=== PATIENT | female | born 1960 | race Caucasian/White ===

== ENCOUNTER 2017-04-06 06:43 | Inpatient (IN) ==
[2017-04-05 14:25] LABS: MANUAL DIFF NEEDED? NO
[2017-04-05 14:45] LABS: BASO% 0.6 % (0.0-0.8); EOS# 0.23 X1000 (0.0-0.7); EOS% 3.5 % (0.0-10.0); HEMATOCRIT 36.1 % (37.0-47.0); HEMOGLOBIN 12.1 g/dL (12.0-16.0); IMM GRAN# 0.02 X1000 (0.0-0.04); IMM GRAN% 0.3 % (0.0-0.5); LYMPH# 2.48 X1000 (1.2-3.4); LYMPH% 37.9 % (20.5-51.1); MCH 30.9 PG (27-31); MCHC 33.5 g/dL (33-37); MCV 92.3 FL (81-99); MONO% 7.6 % (1.7-9.3); MPV 9.4 FL (7.4-10.4); NEUT% 50.1 % (42.2-75.2); PLT 312 X1000 (130-400); RBC 3.91 XMIL (4.2-5.4)
[2017-04-05 15:02] LABS: CALCIUM 9.5 mg/dL (8.8-10.2); POTASSIUM 4.8 mmol/L (3.5-5.1)
--- NOTE | 2017-04-06 06:17 | EKG Report ---
Test Performed on : 04/05/2017 2:10:03 PM Test Reason : PAT Blood Pressure : / mmHG Vent. Rate : 086 BPM Atrial Rate : 086 BPM P-R Int : 186 ms QRS Dur : 084 ms QT Int : 374 ms P-R-T Axes : 046 007 057 degrees QTc Int : 447 ms Normal sinus rhythm. Cannot rule out Anterior infarct , age undetermined Abnormal ECG When compared with ECG of 14-SEP-2016 05:49, T wave inversion no longer evident in Inferior leads Confirmed by Julio HANEY, Javier Kessler ([id number]) on 04/06/2017 6:48:24 AM
[2017-04-06] MEDS ORDERED: LR 1,000 ML ONE ×2 (07:08→15:34)
[2017-04-06] MEDS ORDERED: KEFZOL 1 GM/D5W 1 GM/50 ML IVPB ONE (07:09)
[2017-04-06] MEDS ORDERED: PEPCID ONE (07:09)
[2017-04-06] MEDS ORDERED: REGLAN ONE (07:09)
--- NOTE | 2017-04-06 08:54 | Diag Imaging Result Doc PS360 ---
LYMPHOSCINTIGRAPHY W/IMG - 04/06/2017 INDICATION: Left mastectomy COMPARISON: None FINDINGS: 520 uCi of radiotracer was injected into the left breast. After the appropriate delay, there was successful visualization of at least one sentinel lymph node in the left axilla. IMPRESSION: Successful lymphoscintigraphy of the left breast. Electronically signed by Godfrey Zaacrias 04/06/2017 8:52 AM
[2017-04-06] MEDS ORDERED: ZOFRAN ONE ×2 (09:33→15:34)
[2017-04-06] MEDS ORDERED: ZOFRAN IV ONE (09:37)
[2017-04-06] MEDS ORDERED: METHYLENE BLUE 1% ONE (10:06)
[2017-04-06] MEDS ORDERED: MORPHINE ONE ×3 (12:46→15:05)
[2017-04-06] MEDS ORDERED: NS 1,000 ML ONE (12:46)
[2017-04-06] MEDS: NS 1,000 ML IV SCH (13:29)
[2017-04-06] MEDS ORDERED: LASIX PO PRN (13:34)
[2017-04-06] MEDS ORDERED: NITROGLYCERIN SL PRN (13:34)
[2017-04-06] MEDS: DILAUDID IV PRN ×3 (13:40→22:04)
[2017-04-06] MEDS: NORCO-10 PO PRN ×2 (14:15→18:48)
--- NOTE | 2017-04-06 14:32 | OPERATIVE NOTE ---
PROCEDURE DATE: 04/06/2017 PROCEDURE: Left sentinel lymph node biopsy; left modified radical mastectomy. SURGEON: Ole Celestin MD AGRICULTURE LABORER: Deborah PREOPERATIVE DIAGNOSIS: Cancer of the left breast. POSTOPERATIVE DIAGNOSIS: Cancer of the left breast with positive lymph nodes. DESCRIPTION OF PROCEDURE: Satisfactory general anesthesia was achieved and LMA apparently was used. The left breast and axilla was prepped and draped in a sterile fashion. We marked the skin in an elliptical fashion around the breast with extension into the axilla. We incised the extension into the axilla first and interrogated the axilla. We identified a hot node. This was sentinel node #1. We also identified some other palpable nodes that we sent for frozen section. In total we sent for lymph nodes for frozen section. As we waited for the results of those, we went ahead and incised the skin, the area keyon around the breast and raised the superior flap to the clavicle, inferior flap to the rectus muscle and serratus muscle. We then took the breast off the pectoralis major from medial to lateral. We came off the pectoralis major under the pectoralis minor, took off the pectoralis minor into the axilla. Every lymph node we sent was positive. So we then identified the latissimus dorsi muscle and its lateral aspect and followed it superiorly to its tendinous portion. We then identified the axillary vein laterally, we dissected from lateral to medial. There was still some palpable nodes in the axilla we dissected superior those until all palpable nodes were removed with the axillary contents. We identified the long thoracic nerve. We identified the thoracodorsal nerve. We clamped the tissue between those and divided it and then swept the tissue from between the 2 nerves until the nerves were seen to dive into the respective muscles. We then took the breast off the lateral chest wall. We marked the apex of the axilla with a stitch we then had a specimen of left breast with axillary contents. We irrigated hemostasis was satisfactory. We placed a Riley drain under the superior flap bringing it out medially. We brought up another drain into the axilla bringing it out laterally. These were secured to the skin with 0 silk stitches. We then approximated the skin with harshal. Negative pressure was applied evacuating the space. A sterile dressing was applied. She tolerated it well, was sent to the recovery room in satisfactory condition. cc: Ole Celestin MD
[2017-04-06] MEDS ORDERED: VERSED ONE (15:04)
[2017-04-06] MEDS ORDERED: DIPRIVAN 1% ONE (15:04)
[2017-04-06] MEDS ORDERED: FENTANYL ONE (15:04)
[2017-04-06] MEDS ORDERED: ROBINUL ONE (15:34)
[2017-04-06] MEDS ORDERED: XYLOCAINE-MPF 2% ONE (15:34)
[2017-04-06] MEDS: PATIENT'S OWN MED SUBQ SCH (18:44)
[2017-04-06] MEDS: GLUCOPHAGE PO SCH (18:44)
[2017-04-06] MEDS: KEFZOL 1 GM/D5W 1 GM/50 ML IVPB IV SCH (18:48)
[2017-04-06] MEDS: ZOCOR PO SCH (20:28)
[2017-04-06] MEDS: XANAX PO SCH (20:28)
[2017-04-06] MEDS: TOPROL XL PO SCH (20:28)
[2017-04-06] MEDS: FLEXERIL PO SCH (20:28)
[2017-04-06] MEDS: PROAMATINE PO SCH (20:29)
[2017-04-06] MEDS: RANEXA PO SCH (20:29)
[2017-04-06] MEDS: PERIDEX MT SCH (21:59)
[2017-04-07] MEDS: NS 1,000 ML IV SCH ×3 (01:06→22:47)
[2017-04-07] MEDS: DILAUDID IV PRN ×7 (01:07→23:49)
[2017-04-07] MEDS: KEFZOL 1 GM/D5W 1 GM/50 ML IVPB IV SCH (01:07)
[2017-04-07] MEDS: ZOFRAN IV PRN ×5 (01:08→20:36)
[2017-04-07] MEDS: NORCO-10 PO PRN ×3 (02:50→15:33)
[2017-04-07 05:32] LABS: MANUAL DIFF NEEDED? NO
[2017-04-07 05:38] LABS: BASO% 0.3 % (0.0-0.8); EOS# 0.17 X1000 (0.0-0.7); EOS% 1.9 % (0.0-10.0); HEMATOCRIT 31.2 % (37.0-47.0); HEMOGLOBIN 10.3 g/dL (12.0-16.0); IMM GRAN# 0.02 X1000 (0.0-0.04); IMM GRAN% 0.2 % (0.0-0.5); LYMPH# 2.39 X1000 (1.2-3.4); LYMPH% 26.3 % (20.5-51.1); MCH 31.1 PG (27-31); MCV 94.3 FL (81-99); MONO# 0.76 X1000 (0.11-0.59); MONO% 8.4 % (1.7-9.3); MPV 9.6 FL (7.4-10.4); NEUT% 62.9 % (42.2-75.2); PLT 274 X1000 (130-400); RBC 3.31 XMIL (4.2-5.4)
[2017-04-07 05:53] LABS: AGAP 10; BUN 15 mg/dL (8-22); CALCIUM 8.7 mg/dL (8.8-10.2); CHLORIDE 107 mmol/L (98-107); COSMO 283; POTASSIUM 4.2 mmol/L (3.5-5.1); SODIUM 142 mmol/L (136-145); TCO2 25 mmol/L (25-35)
[2017-04-07] MEDS: GLUCOPHAGE PO SCH ×2 (08:32→16:43)
[2017-04-07] MEDS: RANEXA PO SCH ×2 (08:33→20:35)
[2017-04-07] MEDS: PROZAC PO SCH (08:33)
[2017-04-07] MEDS: TOPAMAX PO SCH (08:33)
[2017-04-07] MEDS: PLAVIX PO SCH (08:33)
[2017-04-07] MEDS: PROAMATINE PO SCH ×2 (08:34→20:36)
[2017-04-07] MEDS: XANAX PO SCH ×2 (08:34→20:36)
[2017-04-07] MEDS: MOBIC PO SCH (08:35)
[2017-04-07] MEDS: PERIDEX MT SCH ×2 (08:35→20:36)
[2017-04-07] MEDS: PREVACID SOLUTAB PO SCH (08:35)
[2017-04-07] MEDS: PATIENT'S OWN MED SUBQ SCH ×3 (10:27→16:43)
[2017-04-07] MEDS: ASPIRIN PO SCH (10:28)
--- NOTE | 2017-04-07 15:06 | Diag Imaging Result Doc PS360 ---
EXAM: CHEST-PORTABLE HISTORY: cough COMPARISON: 09/12/2016. FINDINGS: There are several skin harshal overlying the lower left chest and axilla. Sternal wires are present. The lungs are well expanded. Heart is not enlarged. The vessels are not distended. No pleural effusions identified. No pneumothoraces. No infiltrates. IMPRESSION: Recent surgery on the left, but no acute abnormality except for mild atelectasis in the left base. Electronically signed by Jt Mei 04/07/2017 3:03 PM
[2017-04-07] MEDS: TESSALON PO SCH (16:42)
[2017-04-07] MEDS: TOPROL XL PO SCH (20:36)
[2017-04-07] MEDS: FLEXERIL PO SCH (20:36)
[2017-04-07] MEDS: ZOCOR PO SCH (20:36)
--- NOTE | 2017-04-07 21:44 | CONSULTATION ---
DATE OF CONSULTATION: 04/07/2017 REFERRING PHYSICIAN: Ole Celestin MD HISTORY OF PRESENT ILLNESS: She is a 57-year-old white female patient of mine, who was operated for a left radical mastectomy, followed by sentinel lymph node biopsy. The patient has couple of drains, admitted to the hospital for observation. Patient has persistent cough , some swelling of feet. Basically a medical consult was evaluated. PAST MEDICAL HISTORY: CAD, status post bypass surgery and 7 stents. Depression. Type 2 diabetes. Hypertension. Chronic headaches. Hyperlipidemia. Kidney stones. Sleep apnea. Hiatal hernia. 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 Recent left breast cancer. Dysautonomia. PAST SURGICAL HISTORY: Bypass surgery. Gallbladder surgery. Right shoulder surgery. Right ankle surgery. C-spine fusion. Bilateral carpal tunnel. Right shoulder arthroscopy. MEDICATIONS: Prevacid 30 mg daily. Ranexa 500 p.o. b.i.d. Toprol-XL 25 daily. Flexeril 10 daily. Mobic 15 daily. Prozac 40 daily. Simvastatin 40 daily. Nitroglycerin as needed. Topamax 100 daily. Subcutaneous insulin pump. ProAmatine 10 p.o. b.i.d. Metformin 500 p.o. b.i.d. Plavix 75 daily. Xanax 0.5 p.o. b.i.d. Aspirin 80 mg daily. Lasix 40 daily. ALLERGIES: Bactrim. SOCIAL HISTORY: , 3 children. Disabled. Lives in [place]. No smoking. No alcohol. FAMILY HISTORY: Father of heart problems from diabetes. Mom from dementia problems. HEALTH MAINTENANCE: Flu vaccine 2015. Pneumococcal 2011. Colonoscopy 02/2016. Pap smear 2015. Tetanus 2008. Mammography 2016. REVIEW OF SYSTEMS: HEENT: No headache. No vision problem. No earache. No sore throat. Neck: No goiter. No lymphadenopathy. Cardiopulmonary: Postop pain. Cough. Dry. No chest pain. No shortness of breath. GI: No nausea, vomiting, abdominal pain. : No history of hesitancy, frequency. Swelling of feet. Neurologic: No obvious focal symptoms or weakness. PHYSICAL EXAMINATION: Vital Signs: Afebrile. Stable. Blood pressure is 133/ 55. HEENT: Atraumatic, normocephalic. Pupils equal, react to light. TMs are normal. Nose and throat within normal limits. Neck: Supple. No lymphadenopathy. No goiter. Chest: Bilateral air entry. No rales, no wheezing. Heart: Sounds are regular. Abdomen: Belly is soft, nontender. Good bowel sounds. Extremities: 1+ edema. Neurologic: Nonfocal. Left breast: Two RASHAAD drains were placed. INVESTIGATIONS: CBC: White cell count 4.5 hematocrit 31, platelets 274,000. SMA7 is normal. Calcium 8.7. Chest x-ray: Atelectasis. ASSESSMENT AND PLAN: 1. A 57-year-old white female, admitted to the hospital with left radical mastectomy, modified with sentinel lymph node biopsy. Presented with cough and edema. 2. Upper respiratory infection symptoms. We will use the Robitussin DM or Tussionex. 3. Coronary artery disease status post bypass surgery. Continue on Plavix, metoprolol. 4. Hyperlipidemia on Zocor. 5. Chronic headaches on Topamax. 6. Postop pain with Dilaudid and Zofran. 7. History of dysautonomia on ProAmatine. 8. Chronic depression on Prozac. 9. Deep venous thrombosis and gastrointestinal prophylaxis with Lovenox and Protonix respectively. Once again, thanks for the kind referral. cc: MD Ole Gates MD MTDD
[2017-04-07] MEDS: PROTONIX IV SCH (23:49)
[2017-04-07] MEDS: SODIUM CHLORIDE 0.9% INJ SCH (23:49)
[2017-04-08] MEDS: NORCO-10 PO PRN ×2 (01:28→14:09)
[2017-04-08] MEDS: DILAUDID IV PRN ×5 (02:48→23:33)
[2017-04-08 05:20] LABS: MANUAL DIFF NEEDED? NO
[2017-04-08 05:23] LABS: BASO% 0.1 % (0.0-0.8); EOS# 0.19 X1000 (0.0-0.7); EOS% 2.4 % (0.0-10.0); HEMATOCRIT 30.9 % (37.0-47.0); HEMOGLOBIN 10.1 g/dL (12.0-16.0); LYMPH# 2.49 X1000 (1.2-3.4); LYMPH% 31.5 % (20.5-51.1); MCH 31.1 PG (27-31); MCHC 32.7 g/dL (33-37); MCV 95.1 FL (81-99); MONO# 0.72 X1000 (0.11-0.59); MONO% 9.1 % (1.7-9.3); MPV 9.8 FL (7.4-10.4); NEUT% 56.9 % (42.2-75.2); PLT 245 X1000 (130-400); RBC 3.25 XMIL (4.2-5.4)
[2017-04-08 05:38] LABS: AGAP 10; BUN 14 mg/dL (8-22); CALCIUM 8.3 mg/dL (8.8-10.2); CHLORIDE 107 mmol/L (98-107); COSMO 279; POTASSIUM 4.1 mmol/L (3.5-5.1); SODIUM 141 mmol/L (136-145); TCO2 24 mmol/L (25-35)
[2017-04-08] MEDS: ZOFRAN IV PRN ×4 (06:23→23:34)
[2017-04-08] MEDS: PATIENT'S OWN MED SUBQ SCH ×3 (06:56→16:23)
[2017-04-08] MEDS: HUMULIN R SUBQ SCH ×4 (06:56→22:46)
[2017-04-08] MEDS: PLAVIX PO SCH (09:22)
[2017-04-08] MEDS: ASPIRIN PO SCH (09:22)
[2017-04-08] MEDS: PERIDEX MT SCH ×2 (09:22→22:50)
[2017-04-08] MEDS: PROAMATINE PO SCH ×2 (09:22→22:50)
[2017-04-08] MEDS: XANAX PO SCH ×2 (09:23→22:50)
[2017-04-08] MEDS: RANEXA PO SCH ×2 (09:23→22:50)
[2017-04-08] MEDS: TESSALON PO SCH ×3 (09:23→22:50)
[2017-04-08] MEDS: TOPAMAX PO SCH (09:23)
[2017-04-08] MEDS: MOBIC PO SCH (09:23)
[2017-04-08] MEDS: GLUCOPHAGE PO SCH ×2 (09:24→16:22)
[2017-04-08] MEDS: LOVENOX SUBQ SCH (09:24)
[2017-04-08] MEDS: PROZAC PO SCH (09:25)
[2017-04-08] MEDS: PREVACID SOLUTAB PO SCH (09:25)
[2017-04-08] MEDS: NS 1,000 ML IV SCH ×2 (09:31→22:49)
--- NOTE | 2017-04-08 20:05 | PROGRESS NOTE ---
DATE: 04/08/2017 SUBJECTIVE: Postoperative after left modified mastectomy. Patient has some dry cough. No swelling. No chest pain. REVIEW OF SYSTEMS: None reported. OBJECTIVE: Vital Signs: Stable. HEENT: Within normal limits. Neck: Supple. Chest: Clear. Heart: Sounds are regular. Abdomen: Belly is soft, nontender. Good bowel sounds. No masses palpable. Nonfocal. INVESTIGATIONS: White cell count 7.9, hematocrit 30, platelets 245,000. SMA 7 is normal. Glucose is 55. ASSESSMENT AND PLAN: 1. Day 1 postop left radical mastectomy with 1 sentinel lymph node biopsy which is positive. Follow up on pathology report. 2. Dry cough due to bronchitis. Continue symptomatic treatment. 3. Dysautonomia stable. 4. Status post right ankle fracture stable. 5. Coronary artery disease stable. 6. Diabetes stable. Continue present medical therapy. 7. Discussion with Dr. Celestin and patient. Hopefully she will be discharged home in the morning. Based on the pathology report, further recommendations will be followed. cc: MD Ole Gates MD
[2017-04-08] MEDS: SODIUM CHLORIDE 0.9% INJ SCH (22:50)
[2017-04-08] MEDS: FLEXERIL PO SCH (22:50)
[2017-04-08] MEDS: ZOCOR PO SCH (22:50)
[2017-04-08] MEDS: TOPROL XL PO SCH (22:51)
[2017-04-08] MEDS: PROTONIX IV SCH (22:51)
[2017-04-09] MEDS: DILAUDID IV PRN ×3 (04:18→17:55)
[2017-04-09] MEDS: ZOFRAN IV PRN ×3 (04:18→17:55)
[2017-04-09] MEDS: HUMULIN R SUBQ SCH ×4 (06:21→20:44)
[2017-04-09] MEDS: PATIENT'S OWN MED SUBQ SCH ×4 (06:22→17:48)
[2017-04-09] MEDS: PERIDEX MT SCH ×2 (08:11→20:46)
[2017-04-09] MEDS: PROZAC PO SCH (08:11)
[2017-04-09] MEDS: PLAVIX PO SCH (08:11)
[2017-04-09] MEDS: GLUCOPHAGE PO SCH ×2 (08:12→17:48)
[2017-04-09] MEDS: TESSALON PO SCH ×3 (08:12→17:47)
[2017-04-09] MEDS: ASPIRIN PO SCH (08:12)
[2017-04-09] MEDS: PROAMATINE PO SCH ×2 (08:12→20:45)
[2017-04-09] MEDS: MOBIC PO SCH (08:12)
[2017-04-09] MEDS: TOPAMAX PO SCH (08:12)
[2017-04-09] MEDS: XANAX PO SCH (08:13)
[2017-04-09] MEDS: LOVENOX SUBQ SCH (08:13)
[2017-04-09] MEDS: PREVACID SOLUTAB PO SCH (10:20)
[2017-04-09] MEDS: RANEXA PO SCH ×2 (10:20→20:46)
[2017-04-09] MEDS: NORCO-10 PO PRN (13:16)
[2017-04-09] MEDS: NS 1,000 ML IV SCH (13:16)
--- NOTE | 2017-04-09 13:56 | PROGRESS NOTE ---
DATE: 04/09/2017 SUBJECTIVE: Feels okay, minimal pain. RASHAAD drain serosanguineous. OBJECTIVE: Temperature 98, pulse 82, blood pressure 144/61, O2 saturation 98% on room air. Left mastectomy incision is clean, dry, and intact. There is serosanguineous drainage, and her drains expected amounts. No new labs this morning. ASSESSMENT AND PLAN: This is a 57-year-old female status post left mastectomy with sentinel node biopsy by Dr. Celestin. Overall she is doing well from a surgical standpoint. Dr. Hackett is working up a cough that she has had although our respiratory rate and oxygen requirement are normal appearing. She does seem to have a dry cough. He is going to treat her for this. He wants to keep her today as he monitors her, but I think from a surgical standpoint she is ready to go when she is stable medically. We will continue follow along with Dr. Domingo. He will see the patient over the weekend. cc: MD Ole Walker MD
--- NOTE | 2017-04-09 18:20 | PROGRESS NOTE ---
DATE: 04/09/2017 SUBJECTIVE: Postop day 2 after left mastectomy. Patient complains of nausea, unable to eat and decreased cough. No chest pain. Rest of the review of systems are normal. The patient had a BM yesterday. OBJECTIVE: Vital signs: On exam vitals are stable, afebrile. HEENT: Within normal limits. Neck: Supple. No lymphadenopathy. Chest: Clear. Heart: Sounds are regular. RASHAAD drains were present on the left side of the chest. Belly: Soft, obese, nontender. Good bowel sounds. Extremities: No peripheral edema. ASSESSMENT AND PLAN: 1. Postop day 2 left mastectomy, nausea, bloating. Will hold off discharge. 2. Decreased intravenous fluids. 3. Dysautonomia stable. 4. Type 2 diabetes on metformin. Will discuss with the surgeon who is on-call for Dr. Celestin. Hopefully will be discharged in the morning and continue present medical therapy and will follow up. cc: MD Ole Gates MD
[2017-04-09] MEDS: FLEXERIL PO SCH (20:45)
[2017-04-09] MEDS: ZOCOR PO SCH (20:45)
[2017-04-09] MEDS: TOPROL XL PO SCH (20:45)
[2017-04-09] MEDS: PROTONIX IV SCH (20:46)
[2017-04-09] MEDS: SODIUM CHLORIDE 0.9% INJ SCH (20:46)
[2017-04-10] MEDS: DILAUDID IV PRN ×5 (01:10→22:08)
[2017-04-10] MEDS: ZOFRAN IV PRN ×5 (01:10→22:07)
[2017-04-10] MEDS: NS 1,000 ML IV SCH ×4 (01:11→13:35)
[2017-04-10] MEDS: XANAX PO SCH ×3 (03:51→22:00)
[2017-04-10] MEDS: HUMULIN R SUBQ SCH ×4 (07:42→21:57)
[2017-04-10] MEDS: PATIENT'S OWN MED SUBQ SCH ×3 (07:43→17:15)
[2017-04-10] MEDS: PROZAC PO SCH (08:18)
[2017-04-10] MEDS: TOPAMAX PO SCH (08:18)
[2017-04-10] MEDS: ASPIRIN PO SCH (08:18)
[2017-04-10] MEDS: PROAMATINE PO SCH ×2 (08:18→21:59)
[2017-04-10] MEDS: MOBIC PO SCH (08:18)
[2017-04-10] MEDS: TESSALON PO SCH (08:18)
[2017-04-10] MEDS: PLAVIX PO SCH (08:18)
[2017-04-10] MEDS: RANEXA PO SCH ×2 (08:18→21:59)
[2017-04-10] MEDS: PERIDEX MT SCH ×2 (08:19→22:00)
[2017-04-10] MEDS: LOVENOX SUBQ SCH (08:19)
[2017-04-10] MEDS: PREVACID SOLUTAB PO SCH (08:19)
[2017-04-10] MEDS: GLUCOPHAGE PO SCH ×2 (12:53→17:15)
--- NOTE | 2017-04-10 13:05 | Diag Imaging Result Doc PS360 ---
EXAM: CHEST-2 VIEWS HISTORY: crackles lt TECHNIQUE: Two views PA and lateral COMMENT: There has been apparent recent left thoracotomy. There is a tube overlying lateral to the left chest wall. There are sternotomy wires. There is some atelectasis in both lung bases particularly the medial right lower lobe. There appears to be some improvement with regard to the left base compared to 04/07/2017. Otherwise has been no significant change. IMPRESSION: Slightly improved atelectasis. Electronically signed by Car Muller 04/10/2017 1:03 PM
[2017-04-10] MEDS: LEVAQUIN 750 MG/D5W 750 MG/150 ML IVPB IV SCH (13:32)
--- NOTE | 2017-04-10 14:58 | PROGRESS NOTE ---
DATE: 04/10/2017 SUBJECTIVE: Ms. Harriet Hayes is a 57-year-old white female patient Dr. Chalo Celestin. She is status post left mastectomy with sentinel lymph node biopsy and has [address]. She remains hospitalized per Dr. Hackett because of a cough. I removed 1 of her RASHAAD drains today and redressed her wound, which seems to be healing well, without evidence of abnormal swelling or infection. We will allow Dr. Hackett to determine when she can go home. Her left axillary drain remains in place. cc: MD Ole Newsome MD
[2017-04-10] MEDS: ALBUTEROL NEB INH SCH ×3 (15:05→23:09)
--- NOTE | 2017-04-10 15:56 | PROGRESS NOTE ---
DATE: 04/10/2017 SUBJECTIVE: Patient continues to have the barky dry cough, bothersome to the patient, concerning for her and her . History of frequent pneumonias in the past. OBJECTIVE: Afebrile. Pulse 74, respirations 18, blood pressure 144/66, O2 saturation room air 97- 100%. CV: RRR. Lungs: Crackles left lung base with coarse breath sounds. Extremities: No calf tenderness, cords or edema. Abdomen: Nontender. LABORATORY DATA: No labs done today. Blood sugars ranging 65 to 239 over the past couple of days. ASSESSMENT: 1. Cough with left lung crackles, rule out early left pneumonia versus atelectasis. 2. Frequent pneumonias. 3. Postop left mastectomy per Dr. Celestin. 4. Small pericardial effusion. 5. Coronary artery disease. 6. Type 2 diabetes mellitus. 7. Hypertension. 8. Depression. 9. Chronic headaches. 10. Hyperlipidemia. 11. Dysautonomia. PLAN: At this time, patient says she is afraid to return home, fearful she might have to return with difficulty. She is adamant she wants to stay in the hospital for additional treatment so we will start IV Levaquin and check chest x-ray. Start albuterol nebulizer treatments. Change from Tessalon to Robitussin DM for cough. Try to improve the situation. cc: MD Ole Alfaro MD
[2017-04-10] MEDS: ROBITUSSIN-DM PO SCH ×2 (16:14→17:15)
[2017-04-10] MEDS: MILK OF MAGNESIA PO PRN (18:07)
[2017-04-10] MEDS: TOPROL XL PO SCH (21:59)
[2017-04-10] MEDS: FLEXERIL PO SCH (21:59)
[2017-04-10] MEDS: ZOCOR PO SCH (21:59)
[2017-04-10] MEDS: SODIUM CHLORIDE 0.9% INJ SCH (22:00)
[2017-04-10] MEDS: PROTONIX IV SCH (22:00)
[2017-04-11] MEDS: ROBITUSSIN-DM PO SCH ×7 (00:01→22:08)
[2017-04-11] MEDS: ZOFRAN IV PRN ×5 (02:23→20:15)
[2017-04-11] MEDS: DILAUDID IV PRN ×5 (02:23→20:15)
[2017-04-11] MEDS: PATIENT'S OWN MED SUBQ SCH ×3 (06:53→18:56)
[2017-04-11] MEDS: HUMULIN R SUBQ SCH ×4 (06:53→22:08)
[2017-04-11] MEDS ORDERED: D50W SYRINGE IV PRN (07:05)
[2017-04-11] MEDS: ALBUTEROL NEB INH SCH ×5 (07:55→22:47)
--- NOTE | 2017-04-11 09:23 | PROGRESS NOTE ---
DATE: 04/11/2017 Ms. Harriet Hayes is now postop day 5 from a left breast mastectomy and sentinel lymph node biopsy per Dr. Celestin. I removed 1 of her RASHAAD drains yesterday and I will leave the or more lateral RASHAAD drain in today. Her mastectomy incision is healing well. Reason for her prolonged hospitalization is a chronic cough for which Dr. Hackett and his team are treating her. cc: MD Ole Newsome MD
[2017-04-11] MEDS: ASPIRIN PO SCH (09:43)
[2017-04-11] MEDS: PERIDEX MT SCH ×2 (09:43→20:17)
[2017-04-11] MEDS: PLAVIX PO SCH (09:43)
[2017-04-11] MEDS: MILK OF MAGNESIA PO PRN (09:43)
[2017-04-11] MEDS: PROAMATINE PO SCH ×2 (09:43→20:16)
[2017-04-11] MEDS: MOBIC PO SCH (09:43)
[2017-04-11] MEDS: XANAX PO SCH (09:43)
[2017-04-11] MEDS: RANEXA PO SCH ×2 (09:43→20:16)
[2017-04-11] MEDS: PREVACID SOLUTAB PO SCH (09:44)
[2017-04-11] MEDS: PROZAC PO SCH (09:44)
[2017-04-11] MEDS: LOVENOX SUBQ SCH (09:44)
[2017-04-11] MEDS: TOPAMAX PO SCH (09:44)
[2017-04-11] MEDS: GLUCOPHAGE PO SCH ×2 (09:45→18:57)
--- NOTE | 2017-04-11 13:04 | PROGRESS NOTE ---
DATE: 04/11/2017 SUBJECTIVE: The patient still has a deep, barky, dry cough. Overall some improvement. OBJECTIVE: Vital signs: Afebrile. Pulse 78, respirations 18, blood pressure 119/72, O2 saturation on room air 97%. CV: RRR without appreciable murmur. Lungs: CTA. Extremities: No calf tenderness, cords, or significant edema. Abdomen: Nontender. DIAGNOSTIC STUDIES: Chest x-ray results from yesterday shows improvement in atelectasis in both lung bases, mild. Patient is sitting up on the side of the bed, overall smiling, has some coughing. ASSESSMENT: 1. Cough with atelectasis bilateral lower lung lemon, left slightly greater than right. 2. Frequent pneumonias. 3. Postoperative day #5 status post left mastectomy for breast cancer, per Dr. Celestin. 4. Small pericardial effusion per echocardiogram. 5. Coronary artery disease. 6. Type 2 diabetes mellitus. 7. Hypertension. 8. Depression. 9. Chronic headaches. 10. Hyperlipidemia. 11. Dysautonomia. PLAN: We discussed treatment options such as outpatient treatment with oral Levaquin and Advair and albuterol MDI. The patient is agreeable to try this. She will follow up with Dr. Hackett in 1- 2 days. Robitussin DM as needed for cough. She will follow up with Dr. Celestin as well. cc: MD Ole Alfaro MD
[2017-04-11] MEDS: NS 1,000 ML IV SCH (14:28)
[2017-04-11] MEDS: LEVAQUIN 750 MG/D5W 750 MG/150 ML IVPB IV SCH (14:28)
[2017-04-11] MEDS: ADVAIR 250/50 DISKUS INH SCH (19:17)
[2017-04-11] MEDS: SODIUM CHLORIDE 0.9% INJ SCH (20:16)
[2017-04-11] MEDS: FLEXERIL PO SCH (20:16)
[2017-04-11] MEDS: TOPROL XL PO SCH (20:16)
[2017-04-11] MEDS: ZOCOR PO SCH (20:16)
[2017-04-11] MEDS: PROTONIX IV SCH (20:16)
[2017-04-12] MEDS: ZOFRAN IV PRN ×3 (00:59→09:56)
[2017-04-12] MEDS: DILAUDID IV PRN ×3 (00:59→09:56)
[2017-04-12] MEDS: ROBITUSSIN-DM PO SCH ×3 (01:15→09:04)
[2017-04-12] MEDS: XANAX PO SCH ×2 (02:25→09:06)
[2017-04-12] MEDS: HUMULIN R SUBQ SCH ×2 (06:08→11:29)
[2017-04-12] MEDS: PATIENT'S OWN MED SUBQ SCH ×2 (06:58→11:30)
[2017-04-12] MEDS: ALBUTEROL NEB INH SCH ×2 (07:53→11:25)
[2017-04-12] MEDS: ADVAIR 250/50 DISKUS INH SCH (07:55)
[2017-04-12] MEDS ORDERED: LASIX IV ONE (08:54)
[2017-04-12] MEDS: GLUCOPHAGE PO SCH (08:59)
[2017-04-12] MEDS: LOVENOX SUBQ SCH (09:02)
[2017-04-12] MEDS: PERIDEX MT SCH (09:04)
[2017-04-12] MEDS: ASPIRIN PO SCH (09:05)
[2017-04-12] MEDS: PLAVIX PO SCH (09:05)
[2017-04-12] MEDS: MOBIC PO SCH (09:05)
[2017-04-12] MEDS: TOPAMAX PO SCH (09:05)
[2017-04-12] MEDS: PREVACID SOLUTAB PO SCH (09:06)
[2017-04-12] MEDS: PROAMATINE PO SCH (09:06)
[2017-04-12] MEDS: PROZAC PO SCH (09:06)
[2017-04-12] MEDS: RANEXA PO SCH (09:06)
[2017-04-12 11:13] VITALS: BP 153/66
--- NOTE | 2017-04-12 18:23 | PROGRESS NOTE ---
DATE: 04/12/2017 SUBJECTIVE: Complaints of dry cough. Interval history was reviewed. Some swelling of feet. REVIEW OF SYSTEMS: None reported. OBJECTIVE: Vitals: Are stable. HEENT: Within normal limits. Neck: Supple. Chest: Clear to auscultation. No wheezing. Heart: Sounds are regular. RASHAAD drain, one taken out. Iban were present. Abdomen: Belly is soft, nontender. Good bowel sounds. Extremities: 1+ pedal edema. Neurologic: Nonfocal. IMAGING: Chest x-ray was stable. ASSESSMENT AND PLAN: 1. Postoperative day 4 left modified mastectomy. Follow up on sentinel lymph node biopsy. We will do the staging. 2. Edema. Lasix 1 dose. 3. Cough. Chest x-ray stable. Continue nebulizers. 4. Dysautonomia, stable. 5. Diabetes, hypertension. Stable. 6. Hopefully she will go home, follow up as an outpatient. cc: MD Ole Gates MD MTDD
--- NOTE | 2017-04-14 14:10 | DISCHARGE SUMMARY ---
ADMISSION DATE: 04/06/2017 DISCHARGE DATE: 04/12/2017 PRIMARY DISCHARGE DIAGNOSES: 1. Stage III cancer of the left breast. 2. Cough. PRIMARY PROCEDURE: Left modified radical mastectomy. CONSULTATION: Dr. Hackett. HISTORY/HOSPITAL COURSE: This is a 57-year-old who has a known lump in the left upper outer quadrant biopsy proven in the office to be malignant. After her admission, she was taken to the operating room and underwent a sentinel node biopsy showing every sampled node to be positive. We then proceeded with a left modified radical mastectomy. Postoperatively, her course was complicated by cough for which we consulted Dr. Hackett. He put her on bronchodilators and gave her Tessalon Perles. He gave her an expectorant and a cough suppressant. Her cough improved somewhat. Her drains functioned satisfactorily. Her medial drain was removed by Dr. Domingo covering the weekend. DISPOSITION: By 04/12, it was felt she could be discharged home. DISCHARGE INSTRUCTIONS: Her wound was fine. We will leave her lateral drain in for the patient to empty at home. She will return to the office in 4 days for re-evaluation. cc: Ole Celestin MD
== END 2017-04-12 12:59 | disposition home or self-care (01) ==
LOC: 4N 06:43 → OR 06:43
PROVIDERS: ADMIT Surgery; ATTEND Surgery
PROC: GE.BXSN (2017-04-06 10:17)

== ENCOUNTER 2017-07-06 16:10 | Inpatient (IN) ==
[2017-07-06] MEDS: ZOFRAN IV PRN (18:40)
[2017-07-06 19:48] LABS: IRON SATURATION 17 %; TIBC 284 ug/dL; TOTAL IRON 48 ug/dL (49-151); UNBOUND IRON 236 ug/dL (112-346)
--- NOTE | 2017-07-06 20:29 | Diag Imaging Result Doc PS360 ---
EXAM: CHEST-2 VIEWS HISTORY: SOB TECHNIQUE: COMPARISON: None. FINDINGS: The lungs are well expanded. The heart is not enlarged. Sternal wires are present. There is a right-sided portacatheter. No pneumothorax. The vessels are not distended. There are no infiltrates. No pleural effusions. There has been prior surgery to the lower neck. IMPRESSION: No acute abnormality. Electronically signed by Jt Mei 07/06/2017 8:27 PM
[2017-07-06] MEDS: NS 1,000 ML IV SCH (20:43)
[2017-07-06 21:10] LABS: HEMATOCRIT 28.1 % (37.0-47.0); HEMOGLOBIN 9.4 g/dL (12.0-16.0)
[2017-07-06] MEDS: ZOCOR PO SCH (21:18)
[2017-07-06] MEDS: FLEXERIL PO SCH (21:18)
[2017-07-06] MEDS: RANEXA PO SCH (21:18)
[2017-07-06] MEDS: XANAX PO SCH (21:18)
[2017-07-06] MEDS: PROTONIX IV SCH (21:20)
--- NOTE | 2017-07-06 21:25 | HISTORY AND PHYSICAL ---
CHIEF COMPLAINT: Passing out. Near-syncope. Pale. HISTORY OF PRESENT ILLNESS: She is a 57-year-old pleasant white female who came in my office with with above symptoms. She is very pale. She was not seen in my office since she has been diagnosed with breast cancer in March. She has been under the care of Dr. Winston. She has a positive PET scan at left supraclavicular lymph node, unable to do biopsy. She is getting chemotherapy with a Port-A-Cath. She had a blood workup done last week at Dr. Winston's office. Today she looks very pale. Upon standing, blood pressure was 80/60, almost passed out. She has been hospitalized for syncope due to low blood pressure. She has a history of dysautonomia. Besides this, she also has anemia. As a result, a hospital admission was warranted. She was noted to get a unit of blood, IV fluids, orthostatic blood pressure. Increase the ProAmatine and also check the cortisol level. As a result, a hospital admission was warranted. PAST MEDICAL HISTORY: 1. Stage III breast cancer on the left side. 2. Coronary artery disease. 3. Depression. 4. Type 2 diabetes. 5. Hypertension. 6. Hyperlipidemia. 7. Kidney stones. 8. Sleep apnea. 9. Hiatal hernia. 10. Secondary adrenal insufficiency/dysautonomia. PAST SURGICAL HISTORY: Bypass surgery, cholecystectomy, right shoulder surgery, right ankle surgery, cervical vertebral fusion, bilateral carpal tunnel surgery, right shoulder arthroscopy, left mastectomy, [address] Celestin. Port on the right side. MEDICATIONS: Xanax 0.5 twice daily, aspirin 80 mg daily, Plavix 75 daily, Cymbalta 60 daily, Flexeril 10 mg daily, Lasix 40 mg daily, isosorbide 60 daily, lisinopril 2.5 daily, metformin 500 one tablet b.i.d., midodrine 10 mg b.i.d., Mobic 15 mg daily, Ranexa 500 p.o. b.i.d., simvastatin for 40 mg daily, Topamax 100 daily, Toprol-XL 25 daily. The patient was advised to stop by Dr. Winston last week. Lasix, Toprol and lisinopril. ALLERGIES: Bactrim. SOCIAL HISTORY: . Three children. Lives in [place]. No smoking. No alcohol. FAMILY HISTORY: Father of heart problems from diabetes at the age of 48. Mother had of dementia problem at 83. HEALTH MAINTENANCE: Flu vaccine 2015, pneumococcal 2011, tetanus 2008, mammography 2015, Pap smear 2015, colonoscopy 02/2016. REVIEW OF SYSTEMS: HEENT: No headache. Dizziness. Passing out. No earache. No sore throat. Cardiopulmonary: Port on the right side. No cough. No chest pain. No shortness of breath, PND, orthopnea. GI: No nausea, vomiting, abdominal pain. No altered bowel habits. No bleeding per rectum. : No history of hesitancy, frequency, dysuria. No swelling of legs. No joint pain. Neurologic: Nonfocal. PHYSICAL EXAMINATION: VITAL SIGNS: Blood pressure in my office 80/60 upon standing. GENERAL: Very pale. NOSE AND THROAT: TMs are normal. Nose and throat within normal limits. NECK: Supple. No lymphadenopathy. Port on the right side. CHEST: Clear. HEART: Sounds are regular. ABDOMEN: Belly is soft, nontender. Good bowel sounds. No masses palpable. EXTREMITIES: No peripheral edema, cyanosis. NEUROLOGIC: No obvious neurological deficits. INVESTIGATIONS: SMA7: Creatinine is 1.2, glucose 147. CBC: Hemoglobin 9, hematocrit 28. A1c 7.1. Chest x-ray, port on the right side. Elevation of right hemidiaphragm. Folate levels were normal. Iron is slightly low. Ferritin is slightly high. ASSESSMENT AND PLAN: 1. A 57-year-old white female with history of dysautonomia secondary to adrenal insufficiency/stage 3 breast cancer, undergoing chemotherapy, associated with near-syncope due to hypotension and anemia. 2. Anemia due to chemotherapy. We will transfuse IV fluids and 1 unit of packed RBCs and check the cortisol level and follow up on orthostatic. Increase midodrine ProAmatine 10 mg 3 times daily. 3. Reconcile home medications. 4. Deep venous thrombosis prophylaxis with Lovenox. In light of breast cancer, high risk for DVT. 5. Type 2 diabetes on insulin pump. Follow up on sliding scale with insulin coverage. I will try to communicate with Dr. Winston in the morning about the admission and she is due for chemotherapy on . We will coordinate the care with him. Discussed with the patient and the family. cc: Peter Hackett MD
[2017-07-06] MEDS: HUMULIN R SUBQ SCH (21:43)
[2017-07-07] MEDS: ZOFRAN IV PRN ×4 (00:44→20:49)
[2017-07-07] MEDS: HUMULIN R SUBQ SCH ×4 (06:40→20:44)
[2017-07-07 07:06] LABS: MANUAL DIFF NEEDED? NO
[2017-07-07 07:13] LABS: BASO% 2.4 % (0.0-0.8); EOS# 0.11 X1000 (0.0-0.7); EOS% 2.4 % (0.0-10.0); HEMATOCRIT 29.7 % (37.0-47.0); LYMPH# 1.27 X1000 (1.2-3.4); LYMPH% 27.7 % (20.5-51.1); MCH 30.9 PG (27-31); MCHC 33.7 g/dL (33-37); MCV 91.7 FL (81-99); MONO# 0.79 X1000 (0.11-0.59); MONO% 17.2 % (1.7-9.3); MPV 9.8 FL (7.4-10.4); NEUT% 50.3 % (42.2-75.2); PLT 299 X1000 (130-400); RBC 3.24 XMIL (4.2-5.4)
[2017-07-07 07:23] LABS: CALCIUM 9.5 mg/dL (8.8-10.2); POTASSIUM 3.8 mmol/L (3.5-5.1)
[2017-07-07] MEDS: ASPIRIN PO SCH (08:46)
[2017-07-07] MEDS: LOVENOX SUBQ SCH (08:46)
[2017-07-07] MEDS: PATIENT'S OWN MED SUBQ SCH ×3 (08:47→17:31)
[2017-07-07] MEDS: PROAMATINE PO SCH ×3 (08:47→18:36)
[2017-07-07] MEDS: TOPAMAX PO SCH (08:47)
[2017-07-07] MEDS: RANEXA PO SCH ×2 (08:47→20:49)
[2017-07-07] MEDS: PLAVIX PO SCH (08:47)
[2017-07-07] MEDS: XANAX PO SCH ×2 (08:51→20:49)
--- NOTE | 2017-07-07 09:06 | PROGRESS NOTE ---
DATE: 07/07/2017 SUBJECTIVE: The patient did receive a unit of blood yesterday. It looks better and hemodynamics a little bit stable and slightly pale. OBJECTIVE: Chest: Chest is clear. Heart: Sounds are regular. Abdomen: Port on the right side present. Neurologic: No neurological deficits. INVESTIGATIONS: CBC: White cell count 4.5, hematocrit 29.7, platelet 299. SMA 7 is normal. Vitamin B 12 is normal. Cortisol is low at 2.3. Folate levels were normal. ASSESSMENT AND PLAN: 1. Orthostatic hypotension due to secondary adrenal insufficiency. We will avoid exogenous steroids. 2. Anemia due to chemotherapy. A unit of packed red blood cells given. 3. Dysautonomia. Continue on ProAmatine 3 times daily. We will follow up on orthostatic blood pressure. If she is stable, will discharge tomorrow and follow up with Dr. Winston for chemotherapy. LEVEL OF DOCUMENTATION: 25 minutes. cc: Peter Hackett MD
[2017-07-07] MEDS: NS 1,000 ML IV SCH ×2 (13:57→20:49)
[2017-07-07] MEDS: NORCO-5 PO PRN (13:58)
[2017-07-07] MEDS: PROTONIX IV SCH (18:36)
[2017-07-07] MEDS: SODIUM CHLORIDE 0.9% INJ SCH (18:36)
[2017-07-07] MEDS: ZOCOR PO SCH (20:49)
[2017-07-07] MEDS: FLEXERIL PO SCH (20:49)
[2017-07-08] MEDS: NORCO-5 PO PRN ×2 (03:17→18:04)
[2017-07-08] MEDS: ZOFRAN IV PRN ×3 (03:17→18:05)
[2017-07-08] MEDS: NS 1,000 ML IV SCH (03:18)
[2017-07-08] MEDS: HUMULIN R SUBQ SCH ×4 (08:01→23:48)
[2017-07-08] MEDS: PATIENT'S OWN MED SUBQ SCH ×3 (08:02→16:52)
[2017-07-08] MEDS: PLAVIX PO SCH (10:00)
[2017-07-08] MEDS: PROAMATINE PO SCH ×3 (10:00→18:22)
[2017-07-08] MEDS: TOPAMAX PO SCH (10:00)
[2017-07-08] MEDS: XANAX PO SCH ×2 (10:00→21:29)
[2017-07-08] MEDS: LOVENOX SUBQ SCH (10:00)
[2017-07-08] MEDS: ASPIRIN PO SCH (10:00)
[2017-07-08] MEDS: RANEXA PO SCH ×2 (10:00→21:29)
[2017-07-08] MEDS: PROTONIX IV SCH (18:22)
[2017-07-08] MEDS: SODIUM CHLORIDE 0.9% INJ SCH (18:22)
--- NOTE | 2017-07-08 20:54 | PROGRESS NOTE ---
DATE: 07/08/2017 SUBJECTIVE: Status post unit of blood. Looking better. Cancelled appointment with Dr. Winston this week. REVIEW OF SYSTEMS: None reported. OBJECTIVE: Vital signs: Afebrile. Vitals are stable. So far, no orthostatic changes noted. Input and output are positive 1200. HEENT: Alopecia. Slightly pale. Chest: Clear. Heart: Sounds are regular. Port on the right side. Abdomen: Belly is soft, nontender. No edema. INVESTIGATIONS: None reported. Cortisol level low 2.3. ASSESSMENT: 1. Orthostatic hypotension. Continue on ProAmatine 3 times daily. 2. Anemia due to chemotherapy, stable. 3. Secondary adrenal insufficiency. Cortisol level low. 4. Diabetes, well controlled. PLAN OF CARE: Discontinue IV fluids. Monitor orthostatic. If stable will be discharged in the morning. LEVEL OF DOCUMENTATION: 25 minutes. cc: Peter Hackett MD
[2017-07-08] MEDS: FLEXERIL PO SCH (21:29)
[2017-07-08] MEDS: ZOCOR PO SCH (21:29)
[2017-07-09] MEDS: NORCO-5 PO PRN (00:13)
[2017-07-09] MEDS: ZOFRAN IV PRN (00:16)
[2017-07-09] MEDS: HUMULIN R SUBQ SCH (07:58)
[2017-07-09] MEDS: PATIENT'S OWN MED SUBQ SCH (07:59)
[2017-07-09] MEDS: TOPAMAX PO SCH (08:00)
[2017-07-09] MEDS: RANEXA PO SCH (08:00)
[2017-07-09] MEDS: PLAVIX PO SCH (08:01)
[2017-07-09] MEDS: LOVENOX SUBQ SCH (08:01)
[2017-07-09] MEDS: ASPIRIN PO SCH (08:02)
[2017-07-09 08:06] VITALS: BP 82/38
[2017-07-09] MEDS: PROAMATINE PO SCH (08:10)
[2017-07-09] MEDS: XANAX PO SCH (08:10)
--- NOTE | 2017-07-11 07:12 | DISCHARGE SUMMARY ---
ADMISSION DATE: 07/06/2017 DISCHARGE DATE: 07/09/2017 DISCHARGING DIAGNOSES: 1. Near syncope due to dysautonomia. 2. Anemia due to chemotherapy. SECONDARY DIAGNOSES: 1. Stage III breast cancer on the left side. 2. Coronary artery disease. 3. Depression. 4. Type 2 diabetes. 5. Hypertension. 6. Hyperlipidemia. 7. Kidney stones. 8. Sleep apnea. 9. Hiatal hernia. 10. Secondary adrenal insufficiency. Cortisol level 2.4. PROCEDURES: Transfusion of 1 unit of packed RBCs. BRIEF HISTORY: Please see the H and P that was done on 07/06/2017. In brief, she is a 57-year- old, white, pleasant female with the above problems under the care of Dr. Winston for stage III breast cancer with chemotherapy. She presented to my office with passing out, low blood pressure, pale, cyanotic. Upon standing, blood pressure was 80/60. Hemoglobin 9 g. HOSPITAL COURSE: She was admitted to the hospital for IV fluids. She was also given 1 unit of packed RBCs. Cortisol level is low. She was advised not to take any exogenous steroids. She has a history of dysautonomia. Increased her ProAmatine to 10 mg t.i.d. The patient was hemodynamically stable. She postponed the chemotherapy for next week. LABS: CBC: White cell count 4.5, hematocrit 29, platelets 299,000. SMA 7: Sodium 140, potassium 3.8, chloride 105, BUN 16, creatinine 1, glucose 97, calcium 9.5. Iron is low. B12 and folate normal. Cortisol level 2.3. DISCHARGE INSTRUCTIONS: Hemodynamics were stable. The patient was discharged home with the following instructions: 1. Prevacid 15 mg daily, Ranexa 500 p.o. b.i.d., Flexeril 10 at bedtime, simvastatin 40 mg daily, NitroQuick as needed, Topamax 100 p.o. daily, subcutaneous insulin pump. A1c was excellent. ProAmatine 10 mg t.i.d., metformin 500 p.o. b.i.d., Plavix 75 daily, Xanax 0.5 p.o. b.i.d., aspirin 81 mg daily, Mobic as needed, duloxetine 60 daily. 2. Follow up with outpatient chemotherapy with Dr. Winston. cc: MD Clark Gates MD
== END 2017-07-09 11:10 | disposition home or self-care (01) ==
LOC: DIRADM 16:10 → 3N 16:35
PROVIDERS: ADMIT Internal Medicine; ATTEND Internal Medicine

== ENCOUNTER 2019-06-22 15:18 | Inpatient (IN) ==
[2019-06-22] MEDS ORDERED: TESSALON PO PRN (16:28)
[2019-06-22] MEDS ORDERED: TUSSIONEX LIQUID PO PRN (16:29)
[2019-06-22 16:50] LABS: ALLEN TEST YES; BE 0.6 mmoll (-3.0-3.0); BLOOD TYPE ARTERIAL; HCO3-(ACT) 25.4 mmoll (20.0-26.0); METHB 0.5 % (0.0-1.5); O2(CT) 16.4 mL/dL (15.0-23.0); O2HB 96.7 % (95.0-99.0); PCO2(98.6) 36 mmHg (35-45); PO2(98.6) 86 mmHg (60-100); SAMPLE BLOOD; SAO2 98.8 % (95.0-100.0); pH(98.6) 7.44 (7.35-7.45)
[2019-06-22 16:55] LABS: MODALITY ROOM AIR
[2019-06-22 16:56] LABS: BASO# 0.04 X1000 (0.0-0.2); BASO% 0.6 % (0.0-0.8); EOS# 0.16 X1000 (0.0-0.7); EOS% 2.2 % (0.0-10.0); HEMOGLOBIN 12.3 g/dL (12.0-16.0); IMM GRAN# 0.02 X1000 (0.0-0.04); IMM GRAN% 0.3 % (0.0-0.5); LYMPH# 2.36 X1000 (1.2-3.4); LYMPH% 32.6 % (20.5-51.1); MCH 31.2 PG (27-31); MCHC 34.2 g/dL (33-37); MCV 91.4 FL (81-99); MONO# 0.61 X1000 (0.11-0.59); MONO% 8.4 % (1.7-9.3); MPV 9.7 FL (7.4-10.4); NEUT# 4.06 X1000 (1.4-6.5); NEUT% 55.9 % (42.2-75.2); PLT 247 X1000 (130-400); RBC 3.94 XMIL (4.2-5.4); WBC 7.25 X1000 (4.8-10.8)
[2019-06-22 17:15] LABS: ALB/GLOB RATIO 1.5; ALBUMIN 4.5 g/dL (3.5-5.0); CALCIUM 10.5 mg/dL (8.8-10.2); CREATININE 1.4 mg/dL (0.5-0.9); POTASSIUM 4.1 mmol/L (3.5-5.1); TOTAL BILIRUBIN 0.22 mg/dL (0.20-1.00); TOTAL PROTEIN 7.6 g/dL (6.3-8.3)
[2019-06-22] MEDS: ZOSYN 3.375 GM in NS 50 ML IV SCH ×2 (17:16→21:40)
[2019-06-22] MEDS: GLUCOPHAGE PO SCH (17:16)
[2019-06-22] MEDS: NEXIUM IV SCH (17:16)
[2019-06-22] MEDS: LOVENOX SUBQ SCH (17:16)
[2019-06-22] MEDS: PROAMATINE PO SCH (17:29)
[2019-06-22] MEDS: RANEXA PO SCH (20:19)
[2019-06-22] MEDS: FLEXERIL PO SCH (20:20)
[2019-06-22] MEDS: ZOCOR PO SCH (20:20)
[2019-06-22] MEDS: XANAX PO SCH (20:21)
[2019-06-22] MEDS ORDERED: DUONEB (A & A) INH PRN (20:29)
--- NOTE | 2019-06-22 21:18 | HISTORY AND PHYSICAL ---
CHIEF COMPLAINT: Complains of incessant cough dry, shortness of breath, wheezing for the last 1 week. HISTORY OF PRESENT ILLNESS: She is a 59-year-old white female who basically came in with above symptoms. She is markedly wheezing, and chest x-ray had no pneumonia. Basically admitted to the hospital for acute COPD, asthma exacerbation with failure of outpatient treatment. No chest pain, PND or orthopnea. PAST MEDICAL HISTORY: Left breast neoplasm malignant stage III, CAD status post bypass with 7 stents, depression, type 2 diabetes, hypertension, chronic headaches, hyperlipidemia, depression, kidney stones, sleep apnea, dysautonomia, hiatal hernia, history of secondary adrenal insufficiency. PAST SURGICAL HISTORY: Bypass, cholecystectomy, right shoulder surgery, right ankle surgery, C- spine fusion C5-C6, bilateral carpal tunnel syndrome, right shoulder arthroscopy, left mastectomy and port on the right side. MEDICATIONS: Ranexa 500 p.o. b.i.d., Flexeril 10 mg at bedtime, simvastatin 40 daily, Topamax 100 daily, subcutaneous insulin pump, ProAmatine 10 mg t.i.d., metformin 500 p.o. b.i.d., Plavix 75 daily, Xanax 0.5 p.o. b.i.d., aspirin 81 mg daily, duloxetine 60 daily, Florinef 0.1 mg daily. ALLERGIES: Sulfamethoxazole and trimethoprim. SOCIAL HISTORY: , 3 children, lives in [place]. No smoking. No alcohol. FAMILY HISTORY: Father of heart problems from diabetes at 48. Mom from dementia problems. HEALTH MAINTENANCE: Flu vaccine September 2018, pneumococcal 2017, tetanus 2018. Last mammography January 2019. Pap smear 2015. Colonoscopy [address] Dominguez. Eye exam by [facility] this year, 12/12/2018. Last stress test was done by Dr. Clifford 04/25/2018 REVIEW OF SYSTEMS: HEENT: No headache. No vision problem. No earache. Some sore throat, postnasal drainage, cough, congestion, wheezing, shortness of breath. Cardiopulmonary: No chest pain. No PND. No orthopnea. Gastrointestinal: No nausea, vomiting or abdominal pain. Genitourinary: No history of hesitancy, frequency, dysuria. Musculoskeletal: No swelling of legs. No joint pain. Neurologic Exam: No focal symptoms or weakness. PHYSICAL EXAMINATION: VITAL SIGNS: Temperature is 97.4 degrees, pulse 84, blood pressure 115/86, 5 feet, 197 pounds. HEENT EXAM: Atraumatic, normocephalic. Pupils equal, react to light. TMs are normal. Nose and throat congested. Postnasal drainage. NECK: Supple. No lymphadenopathy. No bruit. CARDIOPULMONARY: Bilateral wheezing. Distant heart sounds. BREAST EXAM: Deferred. Port on the right side noted. ABDOMEN: Belly is soft, nontender. Good bowel sounds. EXTREMITIES: Trace pedal edema. NEUROLOGIC: No obvious neurological deficits noted. INVESTIGATIONS: White cell count 7.2, hematocrit 36, platelets 247,000. ABG on room air: pH is 7.44, pCO2 36, pO2 86, bicarb 25 on room air. Sodium 140, potassium 4.1, chloride 101, BUN 20, creatinine 1.4, glucose 154, calcium 10.5. LFTs were normal. ASSESSMENT: A 59-year-old white female admitted to the hospital with acute asthma exacerbation with bronchitis. PLAN: 1. IV Zosyn. 2. IV steroids low doses. 3. Bronchodilators. 4. DVT, GI prophylaxis with Lovenox and Nexium. 5. Reconcile home medications. For cough, we will use the Tussionex and Tessalon Perles. 6. Diabetes controlled at present regimen and reconcile home medications, and we will follow up. cc: Peter Hackett MD [facility]
[2019-06-22] MEDS ORDERED: TORADOL IV ONE (22:41)
[2019-06-23] MEDS: ZOSYN 3.375 GM in NS 50 ML IV SCH ×4 (04:40→22:10)
[2019-06-23] MEDS: NEXIUM IV SCH ×2 (04:40→18:27)
[2019-06-23] MEDS ORDERED: PATIENT'S OWN MED MISC SCH (07:00)
[2019-06-23] MEDS ORDERED: ULTRACET 37.5MG/325MG PO PRN (08:25)
[2019-06-23] MEDS: GLUCOPHAGE PO SCH ×2 (09:09→18:26)
[2019-06-23] MEDS: PROAMATINE PO SCH ×3 (09:09→18:26)
[2019-06-23] MEDS: SOLU-MEDROL IV SCH (09:09)
[2019-06-23] MEDS: FLORINEF PO SCH (09:09)
[2019-06-23] MEDS: CYMBALTA PO SCH (09:09)
[2019-06-23] MEDS: TOPAMAX PO SCH (09:09)
[2019-06-23] MEDS: XANAX PO SCH ×2 (09:09→20:27)
[2019-06-23] MEDS: ASPIRIN PO SCH (09:09)
[2019-06-23] MEDS: PLAVIX PO SCH (09:09)
[2019-06-23] MEDS: RANEXA PO SCH ×2 (09:09→20:27)
[2019-06-23] MEDS: TORADOL IV PRN ×2 (14:32→20:27)
[2019-06-23] MEDS: LOVENOX SUBQ SCH (18:26)
[2019-06-23] MEDS: ZOCOR PO SCH (20:24)
[2019-06-23] MEDS: FLEXERIL PO SCH (20:27)
[2019-06-23] MEDS: HUMULIN R SUBQ SCH (22:15)
--- NOTE | 2019-06-23 22:53 | PROGRESS NOTE ---
DATE: 06/23/2019 SUBJECTIVE: The patient complains of pain and wheezing,. Nonproductive cough. EXAM: Temperature is 97, vitals are stable. Tachycardic. Room air 92%.HEENT: Within normal limits. Chest: Scattered wheezing. Distant heart sounds. Belly: Soft, nontender. INVESTIGATIONS: Chest x-ray was stable. LABORATORY DATA: Blood sugars around 400. ASSESSMENT AND PLAN: 1. Acute asthma exacerbation with incessant cough. Continue IV Solu-Medrol and IV Zosyn. 2. Symptomatic cough with Tussionex and Tessalon. 3. Elevated blood sugar due to steroids. 4. For pain will give IV Toradol. 5. Breast cancer stable. Coronary artery disease stable. Continue DVT, GI prophylaxis. Continue present treatment. Monitor blood sugars on sliding scale with insulin coverage. LEVEL OF DOCUMENTATION: 25 minutes. cc: Peter Hackett MD
[2019-06-24] MEDS: ZOFRAN IV PRN ×3 (02:30→21:29)
[2019-06-24] MEDS: TORADOL IV PRN ×4 (02:30→21:32)
[2019-06-24] MEDS: SODIUM CHLORIDE 0.9% INJ SCH ×2 (04:49→17:10)
[2019-06-24] MEDS: ZOSYN 3.375 GM in NS 50 ML IV SCH ×4 (04:49→21:30)
[2019-06-24] MEDS: NEXIUM IV SCH ×2 (04:49→17:10)
[2019-06-24] MEDS: HUMULIN R SUBQ SCH ×4 (06:26→21:15)
[2019-06-24] MEDS: XANAX PO SCH ×2 (08:55→21:29)
[2019-06-24] MEDS: PROAMATINE PO SCH ×3 (08:55→17:10)
[2019-06-24] MEDS: ASPIRIN PO SCH (08:56)
[2019-06-24] MEDS: FLORINEF PO SCH (08:56)
[2019-06-24] MEDS: RANEXA PO SCH ×2 (08:56→21:29)
[2019-06-24] MEDS: GLUCOPHAGE PO SCH ×2 (08:56→17:10)
[2019-06-24] MEDS: PLAVIX PO SCH (08:56)
[2019-06-24] MEDS: SOLU-MEDROL IV SCH (08:56)
[2019-06-24] MEDS: CYMBALTA PO SCH (08:56)
[2019-06-24] MEDS: TOPAMAX PO SCH (08:56)
[2019-06-24] MEDS: LOVENOX SUBQ SCH (17:10)
--- NOTE | 2019-06-24 19:25 | PROGRESS NOTE ---
DATE: 06/24/2019 The patient's cough is better. Pain is better. REVIEW OF SYSTEMS: None reported. OBJECTIVE: Temperature is 98 degrees. Vitals are stable. Blood sugar slightly running high.HEENT: Within normal limits. Decreased wheezing. Heart: Sounds are regular. Rest of the exam is benign. ASSESSMENT AND PLAN: 1. Acute asthma with bronchitis is getting better. 2. Diabetes is little bit worsening due to prednisone. I am going to cut down the prednisone to 40 mg daily. 3. Other problems: Diabetes is stable. CAD stable. Breast cancer is stable and dysautonomia stable. We will continue to monitor and further treatment will follow up. LEVEL OF DOCUMENTATION: 25 minutes. cc: Peter Hackett MD
[2019-06-24] MEDS: FLEXERIL PO SCH (21:29)
[2019-06-24] MEDS: ZOCOR PO SCH (21:29)
[2019-06-24 22:46] LABS: URINE SOURCE CLEAN CATCH
[2019-06-24 22:47] LABS: BILIRUBIN URINE NEGATIVE (NEGATIVE); BLOOD URINE NEGATIVE (NEGATIVE); COLOR YELLOW; GLUCOSE URINE 500 mg/dL (NEGATIVE); KETONE URINE NEGATIVE (NEGATIVE); LEUKOCYTES URINE NEGATIVE (NEGATIVE); NITRITE URINE NEGATIVE (NEGATIVE); PROTEIN URINE NEGATIVE (NEGATIVE); SP GRAVITY URINE 1.015; TURBIDITY URINE CLEAR (CLEAR); UROBILINOGEN URINE NORMAL (NORMAL)
[2019-06-24 23:14] LABS: UR EPITHELIAL CELLS <10 /HPF (<10); URINE BACTERIA NEGATIVE /HPF; URINE RBC <10 /HPF (<10); URINE WBC <10 /HPF (<10)
[2019-06-24 23:45] LABS: URINE CASTS NONE SEEN; URINE CRYSTALS NONE SEEN; URINE SMALL ROUND CELLS NONE SEEN; URINE YEAST NONE SEEN
[2019-06-25] MEDS: ZOSYN 3.375 GM in NS 50 ML IV SCH ×4 (03:43→20:49)
[2019-06-25] MEDS: SODIUM CHLORIDE 0.9% INJ SCH ×2 (03:43→16:40)
[2019-06-25] MEDS: TORADOL IV PRN ×4 (03:43→23:27)
[2019-06-25] MEDS: ZOFRAN IV PRN ×4 (03:43→23:27)
[2019-06-25] MEDS: NEXIUM IV SCH ×2 (03:43→16:40)
[2019-06-25] MEDS: HUMULIN R SUBQ SCH ×4 (06:20→23:27)
[2019-06-25] MEDS: GLUCOPHAGE PO SCH ×2 (08:46→16:41)
[2019-06-25] MEDS: SOLU-MEDROL IV SCH (08:46)
[2019-06-25] MEDS: PROAMATINE PO SCH ×3 (08:46→16:41)
[2019-06-25] MEDS: FLORINEF PO SCH (08:47)
[2019-06-25] MEDS: RANEXA PO SCH ×2 (08:47→20:50)
[2019-06-25] MEDS: CYMBALTA PO SCH (08:47)
[2019-06-25] MEDS: XANAX PO SCH (08:47)
[2019-06-25] MEDS: PLAVIX PO SCH (08:47)
[2019-06-25] MEDS: TOPAMAX PO SCH (08:47)
[2019-06-25] MEDS: ASPIRIN PO SCH (08:47)
[2019-06-25] MEDS: LOVENOX SUBQ SCH (16:41)
--- NOTE | 2019-06-25 17:46 | PROGRESS NOTE ---
DATE: 06/25/2019 SUBJECTIVE: The patient is doing little better. Decreased cough and wheezing. is at bedside. Blood sugars running very well. OBJECTIVE: Vital signs: Temp is 98.4 degrees, pulse 93, blood pressure is stable. HEENT: Within normal limits. Neck: Supple. Lungs: Decreased wheezing. Cardiovascular: Heart sounds are regular. ASSESSMENT AND PLAN: 1. Acute asthmatic bronchitis. Chest x-ray is stable. Getting better. Decreased IV steroids. 2. Diabetes is stable. 3. Breast cancer, stable. 4. Coronary artery disease, stable. 5. Dysautonomia, stable. Continue present antibiotics. If stable, will discharge in the morning. LEVEL OF DOCUMENTATION: Fifteen minutes. cc: Peter Hackett MD
[2019-06-25] MEDS: FLEXERIL PO SCH (20:50)
[2019-06-25] MEDS: ZOCOR PO SCH (20:50)
[2019-06-26] MEDS: ZOSYN 3.375 GM in NS 50 ML IV SCH ×2 (01:05→04:15)
[2019-06-26] MEDS: NEXIUM IV SCH (04:15)
[2019-06-26] MEDS: XANAX PO SCH ×2 (04:16→08:51)
[2019-06-26] MEDS: ZOFRAN IV PRN (05:50)
[2019-06-26] MEDS: TORADOL IV PRN (05:50)
[2019-06-26] MEDS: HUMULIN R SUBQ SCH (06:22)
[2019-06-26 07:24] VITALS: BP 140/70
[2019-06-26] MEDS: SOLU-MEDROL IV SCH (08:50)
[2019-06-26] MEDS: PROAMATINE PO SCH (08:50)
[2019-06-26] MEDS: ASPIRIN PO SCH (08:51)
[2019-06-26] MEDS: GLUCOPHAGE PO SCH (08:51)
[2019-06-26] MEDS: CYMBALTA PO SCH (08:51)
[2019-06-26] MEDS: RANEXA PO SCH (08:51)
[2019-06-26] MEDS: PLAVIX PO SCH (08:51)
[2019-06-26] MEDS: FLORINEF PO SCH (08:51)
[2019-06-26] MEDS: TOPAMAX PO SCH (08:51)
--- NOTE | 2019-06-27 10:17 | DISCHARGE SUMMARY ---
ADMISSION DATE: 06/24/2019 DISCHARGE DATE: 06/26/2019 DISCHARGING DIAGNOSIS: Acute asthmatic bronchitis and laryngitis. SECONDARY DIAGNOSES: 1. Stage III breast cancer in remission. 2. Coronary artery disease status post bypass with multiple stents. 3. Depression. 4. Type 2 diabetes. 5. Hypertension. 6. Chronic headaches. 7. Hyperlipidemia. 8. Depression. 9. Kidney stones. 10. Sleep apnea. 11. Dysautonomia. 12. Hiatal hernia. BRIEF HISTORY: Please see the H and P that was done on 06/22/2019. In brief, she is a 59-year- old white female with the above medical problems and was admitted with shortness of breath, cough, wheezing, dry, and nonproductive barking cough. Chest x-ray was stable. She was wheezing markedly. HOSPITAL COURSE: The patient was given IV steroids, oxygen, bronchodilators, and IV steroids. She did not have any productive cough. Finally, her cough was subsided. Rest of the hospital course was uneventful. LABORATORY: CBC: White cell count 7.2, hematocrit 36, and platelets 247,000. ABG: pH is 7.44, pCO2 36, PO2 86 on room air. Sodium 140, potassium 4.1, chloride 101, BUN 30, creatinine 1.4 and glucose 154. Liver functions were normal. Urinalysis is clear. DISCHARGE INSTRUCTIONS: 1. Initiate vaccination protocol prior to the discharge. 2. Prevacid 20 mg daily. 3. Ranexa 500 p.o. b.i.d. 4. Flexeril 10 at bedtime. 5. Simvastatin 40 daily. 6. NitroQuick as needed. 7. Topamax 100 daily. 8. Subcutaneous insulin pump. She is going to adjust as she is getting a few episodes of hypoglycemia. I explained the side effects. 9. ProAmatine 10 p.o. t.i.d. 10. Metformin 500 b.i.d. 11. Plavix 75 daily. 12. Xanax 0.5 p.o. b.i.d. 13. Aspirin 81 mg daily. 14. Mobic 15 daily. 15. Florinef 0.1 mg daily. 16. Tessalon Perles as needed. No need for any antibiotics. The patient is going to decide whether Dexilant or Prevacid insurance policy. 17. Follow up in my office in 10 days. cc: Peter Hackett MD [facility]TDD
== END 2019-06-26 09:57 | disposition home or self-care (01) ==
LOC: DIRADM 15:18 → INTOOBSV 15:18 → 3N 15:45
PROVIDERS: ADMIT Internal Medicine; ATTEND Internal Medicine